=== PATIENT | female | born 1995 | race Caucasian/White ===

== ENCOUNTER 2016-09-04 13:13 | Outpatient (CLI) | payer OTHER | END 2016-09-04 13:14 | disposition home or self-care (01) | DX: F41.1 Generalized anxiety disorder (principal); R53.83 Other fatigue ==

== ENCOUNTER 2017-03-23 14:19 | Emergency (ER) | payer OTHER ==
[2017-03-23 15:07] LABS: BASOPHILS # (AUTO) 0.1 10^3/uL (0.0-0.1); BASOPHILS % (AUTO) 0.8 %; EOSINOPHILS # (AUTO) 0.1 10^3/uL (0.0-0.7); EOSINOPHILS % (AUTO) 0.9 %; HCT - HEMATOCRIT 43.8 % (37.0-47.0); HGB - HEMOGLOBIN 14.8 g/dL (12.0-16.0); LYMPHOCYTES # (AUTO) 1.8 10^3/uL (1.5-3.5); LYMPHOCYTES % (AUTO) 17.1 %; MEAN CORPUSCULAR HEMOGLOBIN 28.9 pg (27.0-31.0); MEAN CORPUSCULAR HGB CONC 33.7 g/dL (32.0-36.0); MEAN CORPUSCULAR VOLUME 85.6 fL (81.0-99.0); MEAN PLATELET VOLUME 8.2 fL (7.9-10.8); MONOCYTES # (AUTO) 0.5 10^3/uL (0.0-1.0); MONOCYTES % (AUTO) 4.7 %; NEUTROPHILS # (AUTO) 8.1 10^3/uL (1.5-6.6); NEUTROPHILS % (AUTO) 76.5 %; RED BLOOD COUNT 5.12 10^6/uL (4.20-5.40); RED CELL DISTRIBUTION WIDTH 13.8 % (12.0-15.0); UNCORRECTED WHITE BLOOD COUNT 10.6 x10^3/uL; WHITE BLOOD COUNT 10.6 x10^3/uL (4.8-10.8)
[2017-03-23 15:18] LABS: ALBUMIN/GLOBULIN RATIO 1.3 (1.0-2.2); BILIRUBIN,TOTAL 0.3 mg/dL (0.2-1.0); BUN - BLOOD UREA NITROGEN 13 mg/dL (6-20); CALCIUM 9.2 mg/dL (8.5-10.3); CARBON DIOXIDE - CO2 20 mmol/L (21-32); CHLORIDE 111 mmol/L (101-111); CREATININE 0.9 mg/dL (0.4-1.0); GFR - MDRD 79 (>89); GLUCOSE 115 mg/dL (70-100); LIPASE 30 U/L (22-51); POTASSIUM 3.8 mmol/L (3.5-5.0); SALICYLATE < 6.0 mg/dL; SODIUM 138 mmol/L (135-145); TOTAL PROTEIN 7.6 g/dL (6.7-8.2)
[2017-03-23 15:19] LABS: ACETAMINOPHEN < 10 ug/mL (10-30)
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
[2017-03-23 16:05] LABS: BILIRUBIN,URINE NEGATIVE (NEGATIVE)
[2017-03-23 16:07] LABS: UA CHARGE (STRIP ONLY) YES; UR CULTURE IF IND NOT INDICATED
[2017-03-23 16:08] LABS: HCG UR QUAL NEGATIVE
[2017-03-23 16:13] LABS: PLATELET MORPHOLOGY 1+ LARGE PLATELETS (NORMAL)
[2017-03-23 16:14] LABS: NP AUTO DIFFERENTIAL? NO; NP MAN DIFFERENTIAL? YES; PLATELET ESTIMATE, MANUAL NORMAL (130-450,000) (NORMAL)
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
--- NOTE | 2017-03-24 01:27 | ED Physician Documentation ---
ED Addendum - Addendum Addendum: 03/24/17 01:25 Patient was signed over to me from dr lara pending tele psych consult. the initial telepsych consult recommended inpatient care. Patient and mother became upset and stated that they wanted to go home and wanted to talk to another psychiatrist together. A second consult was placed and a discussion was had with the patient and family. It was decided that it was ok for the patient to go home as long as the patient had 24 hour surveillance. Patient and mother agreed with the plan and were stable for discharge with outpatient follow up.
[2017-03-24 01:40] VITALS: BP 117/77
== END 2017-03-24 01:41 | disposition home or self-care (01) ==
LOC: ED 14:19
DX: T43.592A Poisoning by other antipsychotics and neuroleptics, intentional self-harm, initial encounter (principal); R11.10 Vomiting, unspecified; R00.0 Tachycardia, unspecified
CPT/HCPCS: 36415; 80053; 80306; 80307; 80320; 80329; 81003; 81025; 83690; 85025; 93005; 99284; G0426; Q3014; 81001; 87086

== ENCOUNTER 2019-02-07 11:45 | Emergency (ER) | payer OTHER ==
--- NOTE | 2019-02-07 12:34 | ED Physician Documentation ---
PD HPI MHE - Stated complaint Stated Complaint: SI - Chief complaint Chief Complaint: MHE - History obtained from History obtained from: Patient, Family - History of Present Illness Primary symptom: Suicidal ideation, Self harm - cut, Depression, Anxiety, Other (binging and purging on food) Timing - onset: How many days ago (2) Severity Comments: moderate severity Contributing factors: Work (hearing coworkers talk about her) Similar symptoms before: Diagnosis (anxiety and depression) Recently seen: Not recently seen - Additional information Additional information: denies pain. Denies ingestion. Denies alcohol or substance abuse. Reports she considered overdosing on old medications she has at home to kill herself. She has a prior hx of overdose Review of Systems Ten Systems: 10 systems reviewed and negative Constitutional: denies: Fever Cardiac: denies: Chest pain / pressure Respiratory: denies: Dyspnea GI: denies: Abdominal Pain Neurologic: denies: Generalized weakness, Altered mental status Psychiatric: reports: Depressed, Suicidal, Anxiety. denies: Hallucinations, Delusions PD PAST MEDICAL HISTORY - Past Medical History Past Medical History: Yes Psych: Depression, Anxiety - Past Surgical History Past Surgical History: Yes General: Appendectomy - Present Medications Home Medications: Ambulatory Orders Medication Instructions Recorded Confirmed hydrOXYzine HCl [Hydroxyzine HCl] 50 mg PO Q6HR PRN #30 tablet 02/07/19 - Allergies Allergies/Adverse Reactions: Allergies Allergy/AdvReac Type Severity Reaction Status Date / Time lorazepam [From Ativan] Allergy Anxiety Verified 02/07/19 12:03 aripiprazole [From Abilify] AdvReac Anxiety Verified 03/23/17 14:35 - Social History Does the pt smoke?: No Smoking Status: Never smoker Does the pt drink ETOH?: No Does the pt have substance abuse?: No - Immunizations Immunizations are current?: Yes PD ED PE NORMAL - Vitals Vital signs reviewed: Yes - General General: Alert and oriented X 3, No acute distress, Well developed/nourished - HEENT HEENT: Atraumatic - Neck Neck: Supple, no meningeal sign - Cardiac Cardiac: RRR, No murmur, No gallop, No rub - Respiratory Respiratory: No respiratory distress, Clear bilaterally - Abdomen Abdomen: Soft, Non tender, Non distended - Female Female : Deferred - Rectal Rectal: Deferred - Derm Derm: Normal color, Warm and dry, No rash, Other (multiple superficial old cuts to left proximal forearm on volar aspect) - Extremities Extremities: No deformity - Neuro Neuro: Alert and oriented X 3 Eye Opening: Spontaneous Motor: Obeys Commands Verbal: Oriented GCS Score: 15 - Psych Psych: Normal affect, Other (depressed mood ) Results - Vitals Vitals: Vital Signs - 24 hr 02/07/19 02/07/19 15:01 17:08 Heart Rate 79 89 Respiratory 18 16 Rate Blood Pressure 126/100 H 131/93 H O2 Saturation 100 98 Oxygen O2 Source Room air - Labs Labs: Microbiology 02/07/19 12:45 Urine Culture - Final Urine,Clean Catch 50-100,000 COLONIES/ML Polymicrobial growth including potential pathogens. This is suggestive of skin or other contamination. Laboratory Tests 02/07/19 02/07/19 02/07/19 12:38 12:38 12:45 WBC 7.6 RBC 5.01 Hgb 14.5 Hct 43.6 MCV 87.0 MCH 28.9 MCHC 33.3 RDW 13.7 Plt Count 303 MPV 8.1 Neut # (Auto) 5.0 Lymph # (Auto) 1.9 [place] # (Auto) 0.6 Eos # (Auto) 0.1 Baso # (Auto) 0.0 Absolute Nucleated RBC 0.00 Nucleated RBC % 0.0 Sodium 138 Potassium 3.8 Chloride 102 Carbon Dioxide 24 Anion Gap 12.0 BUN 11 Creatinine 0.6 Estimated GFR (MDRD) 124 Glucose 102 H Calcium 9.5 Total Bilirubin 0.6 AST 24 ALT 27 Alkaline Phosphatase 68 Total Protein 7.6 Albumin 4.3 Globulin 3.3 Albumin/Globulin Ratio 1.3 Lipase 29 Urine Color Urine Clarity Urine pH Ur Specific [place] Urine Protein Urine Glucose (UA) Urine Ketones Urine Occult Blood Urine Nitrite Urine Bilirubin Urine Urobilinogen Ur Leukocyte Esterase Urine RBC Urine WBC Ur Squamous Epith Cells Urine Bacteria Ur Microscopic Review Urine Culture Comments Urine HCG, Qual Urine Opiates Screen NEGATIVE Ur Oxycodone Screen NEGATIVE Urine Methadone Screen NEGATIVE Ur Propoxyphene Screen NEGATIVE Ur Barbiturates Screen NEGATIVE Ur Tricyclics Screen NEGATIVE Ur Phencyclidine Scrn NEGATIVE Ur Amphetamine Screen NEGATIVE U Methamphetamines Scrn NEGATIVE U Benzodiazepines Scrn NEGATIVE Urine Cocaine Screen NEGATIVE U Cannabinoids Screen NEGATIVE Ethyl Alcohol < 5.0 02/07/19 12:45 WBC RBC Hgb Hct MCV MCH MCHC RDW Plt Count MPV Neut # (Auto) Lymph # (Auto) [place] # (Auto) Eos # (Auto) Baso # (Auto) Absolute Nucleated RBC Nucleated RBC % Sodium Potassium Chloride Carbon Dioxide Anion Gap BUN Creatinine Estimated GFR (MDRD) Glucose Calcium Total Bilirubin AST ALT Alkaline Phosphatase Total Protein Albumin Globulin Albumin/Globulin Ratio Lipase Urine Color YELLOW Urine Clarity CLEAR Urine pH 7.5 Ur Specific [place] 1.015 Urine Protein NEGATIVE Urine Glucose (UA) NEGATIVE Urine Ketones TRACE Urine Occult Blood NEGATIVE Urine Nitrite NEGATIVE Urine Bilirubin NEGATIVE Urine Urobilinogen 0.2 (NORMAL) Ur Leukocyte Esterase TRACE H Urine RBC 0-5 Urine WBC 0-3 Ur Squamous Epith Cells FEW Squamous Urine Bacteria Few Ur Microscopic Review INDICATED Urine Culture Comments INDICATED Urine HCG, Qual NEGATIVE Urine Opiates Screen Ur Oxycodone Screen Urine Methadone Screen Ur Propoxyphene Screen Ur Barbiturates Screen Ur Tricyclics Screen Ur Phencyclidine Scrn Ur Amphetamine Screen U Methamphetamines Scrn U Benzodiazepines Scrn Urine Cocaine Screen U Cannabinoids Screen Ethyl Alcohol normal labs except mild hyperglycemia PD MEDICAL DECISION MAKING - ED course Complexity details: considered differential, d/w patient, d/w family ED course: 23 y/o F with hx of anxiety, depression, disordered eating with feelings of SI. Has previous attempted overdose with meds at home. Has access to old meds at home - hydroxyzine and others that she can't recall. Has been off meds for some time because her PCP does not feel comfortable starting to meds and [place]. [place] has superficial cuts on the forearm which are healed and require no intervention or repair. No drug or alcohol abuse. Pt is medically stable. Will obtain labs per E request for clearance. She is stable, awaiting E eval. E evaluated and found pt reasonable, not acutely suicidal and stable for safety contract with outpt f/u. The MHE assisted in arranging f/u for the patient. Departure - Departure Disposition: 01 Home, Self Care Clinical Impression: Anxiety Condition: Stable Record reviewed to determine appropriate education?: Yes Follow-Up: Serenity Mcmahan MD [Primary Care Provider] - Prescriptions: hydrOXYzine HCl [Hydroxyzine HCl] 50 mg PO Q6HR PRN #30 tablet PRN Reason: Anxiety Discharge Date/Time: 02/07/19 17:09
[2019-02-07 12:45] LABS: BASOPHILS % (AUTO) 0.6 %; EOSINOPHILS # (AUTO) 0.1 10^3/uL (0.0-0.7); EOSINOPHILS % (AUTO) 1.1 %; HGB - HEMOGLOBIN 14.5 g/dL (12.0-16.0); LYMPHOCYTES # (AUTO) 1.9 10^3/uL (1.5-3.5); LYMPHOCYTES % (AUTO) 25.2 %; MEAN CORPUSCULAR HEMOGLOBIN 28.9 pg (27.0-31.0); MEAN CORPUSCULAR HGB CONC 33.3 g/dL (32.0-36.0); MEAN PLATELET VOLUME 8.1 fL (7.9-10.8); MONOCYTES # (AUTO) 0.6 10^3/uL (0.0-1.0); MONOCYTES % (AUTO) 7.7 %; NEUTROPHILS % (AUTO) 65.4 %; PLT - PLATELET COUNT 303 10^3/uL (130-450); RED BLOOD COUNT 5.01 10^6/uL (4.20-5.40); RED CELL DISTRIBUTION WIDTH 13.7 % (12.0-15.0); WHITE BLOOD COUNT 7.6 x10^3/uL (4.8-10.8)
[2019-02-07 12:51] LABS: MUDS CUTOFF CONCENTRATIONS CUTOFF CONC BELOW:
[2019-02-07 12:56] LABS: BILIRUBIN,URINE NEGATIVE (NEGATIVE); GLUCOSE, URINE (UA) NEGATIVE (NEGATIVE); KETONES,URINE (UA) TRACE mg/dL (NEGATIVE); LEUKOCYTE ESTERASE, URINE TRACE (NEGATIVE); NITRITE,URINE NEGATIVE (NEGATIVE); OCCULT BLOOD,URINE NEGATIVE (NEGATIVE); PH,URINE 7.5 PH (5.0-7.5); PROTEIN,URINE NEGATIVE (NEGATIVE); UROBILINOGEN,URINE 0.2 (NORMAL) E.U./dL (NORMAL)
[2019-02-07 12:58] LABS: CLARITY,URINE CLEAR (CLEAR); HCG UR QUAL NEGATIVE
[2019-02-07 12:59] LABS: ALBUMIN 4.3 g/dL (3.2-5.5); ALBUMIN/GLOBULIN RATIO 1.3 (1.0-2.2); ALKALINE PHOSPHATASE 68 IU/L (42-121); ALT ALANINE AMINOTRANSFERASE 27 IU/L (10-60); AST ASPARTATE AMINOTRANSFERASE 24 IU/L (10-42); BILIRUBIN,TOTAL 0.6 mg/dL (0.2-1.0); BUN - BLOOD UREA NITROGEN 11 mg/dL (6-20); CALCIUM 9.5 mg/dL (8.5-10.3); CARBON DIOXIDE - CO2 24 mmol/L (21-32); CHLORIDE 102 mmol/L (101-111); CREATININE 0.6 mg/dL (0.4-1.0); GFR - MDRD 124 (>89); GLUCOSE 102 mg/dL (70-100); LIPASE 29 U/L (22-51); SODIUM 138 mmol/L (135-145); TOTAL PROTEIN 7.6 g/dL (6.7-8.2)
[2019-02-07 13:06] LABS: AMPHETAMINE SCREEN,URINE NEGATIVE (NEGATIVE); BENZODIAZEPINES SCREEN, URINE NEGATIVE (NEGATIVE); COCAINE SCREEN URINE NEGATIVE (NEGATIVE); METHADONE SCREEN, URINE NEGATIVE (NEGATIVE); METHAMPHETAMINES SCREEN, URINE NEGATIVE (NEGATIVE); OPIATE SCREEN, URINE NEGATIVE (NEGATIVE); OXYCODONE SCREEN, URINE NEGATIVE (NEGATIVE); PROPOXYPHENE SCREEN, URINE NEGATIVE (NEGATIVE); TRICYCLIC ANTIDEPRESSANT,URINE NEGATIVE (NEGATIVE)
[2019-02-07 13:14] LABS: BACTERIA,URINE Few /HPF (None Seen); RBC,URINE 0-5 /HPF (0-5); SQUAMOUS EPITHELIAL CELL,UR FEW Squamous (<= Few)
[2019-02-07 17:09] VITALS: BP 131/93
== END 2019-02-07 17:09 | disposition home or self-care (01) ==
LOC: ED 11:45
DX: F41.9 Anxiety disorder, unspecified (principal); F32.9 Major depressive disorder, single episode, unspecified; R45.851 Suicidal ideations
CPT/HCPCS: 36415; 80053; 80306; 80320; 81001; 81003; 81025; 83690; 85025; 87086; 99283

== ENCOUNTER 2019-02-14 17:28 | Outpatient (CLI) | payer OTHER | END 2019-02-14 23:59 | disposition home or self-care (01) | LOC: LAB.R 17:28 | PROVIDERS: ATTEND Family Medicine | DX: N39.0 Urinary tract infection, site not specified (principal) | CPT/HCPCS: 87086 ==

== ENCOUNTER 2019-02-14 17:47 | Outpatient (CLI) | payer OTHER | END 2019-02-14 17:48 | disposition home or self-care (01) | LOC: LAB 17:47 | PROVIDERS: ATTEND Family Medicine | DX: R11.2 Nausea with vomiting, unspecified (principal); R06.2 Wheezing; R05 Cough | CPT/HCPCS: 85379 ==

== ENCOUNTER 2019-02-14 19:22 | Emergency (ER) | payer OTHER ==
[2019-02-14] MEDS ORDERED: CHERRY SYRUP 10 ML UDC PO ONE (20:17)
[2019-02-14] MEDS ORDERED: DEXAMETHASONE 10 MG/ML VIAL PO STA (20:17)
[2019-02-14] MEDS ORDERED: IPRATROPIUM/ALBUTEROL 3 ML NEB INH STA (20:17)
[2019-02-14] MEDS ORDERED: IOVERSOL 320 100 ML VIAL IVP ONE ×2 (20:30→20:53)
--- NOTE | 2019-02-14 20:59 | ED Physician Documentation ---
PD HPI DYSPNEA - Stated complaint Stated Complaint: HIGH D DIMER - Chief complaint Chief Complaint: Resp - History obtained from History obtained from: Patient, Family - History of Present Illness Timing - onset: How many weeks ago (2) Timing - onset during: Light activity Timing - duration: Weeks (2) Timing - details: Gradual onset, Still present Inciting event(s): URI Improved by: Inhaler/neb, Rest Worsened by: Exertion, Coughing Associated symptoms: Cough, Chest pain / discomfort Similar symptoms before: Has not had sx before Recently seen: Clinic - Additional information Additional information: 23-year-old female has been sick with a cough and congestion for the past 2 weeks today she is developed some difficulty breathing and is having a difficult time getting a full deep breath. She was evaluated in the clinic and has been sent to the emergency department after her d-dimer was elevated. Review of Systems Constitutional: denies: Fever Eyes: denies: Decreased vision Ears: denies: Ear pain Nose: reports: Rhinorrhea / runny nose, Congestion Throat: reports: Sore throat Cardiac: reports: Chest pain / pressure. 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 : None HEENT: None Psych: Depression, Anxiety Musculoskeletal: None Derm: None - Past Surgical History Past Surgical History: Yes General: Appendectomy - Present Medications Home Medications: Ambulatory Orders Medication Instructions Recorded Confirmed hydrOXYzine HCl [Hydroxyzine HCl] 50 mg PO Q6HR PRN #30 tablet 02/07/19 02/14/19 Azithromycin [Zithromax] 250 mg PO DAILY #4 tablet 02/14/19 - Allergies Allergies/Adverse Reactions: Allergies Allergy/AdvReac Type Severity Reaction Status Date / Time lorazepam [From Ativan] Allergy Anxiety Verified 02/14/19 19:34 aripiprazole [From Abilify] AdvReac Anxiety Verified 02/14/19 19:34 - Social History Does the pt smoke?: No Smoking Status: Never smoker Does the pt drink ETOH?: No Does the pt have substance abuse?: No - Immunizations Immunizations are current?: Yes - POLST Patient has POLST: No PD ED PE NORMAL - Vitals Vital signs reviewed: Yes (normal ) - General General: Alert and oriented X 3, No acute distress, Well developed/nourished - HEENT HEENT: Atraumatic, PERRL, EOMI, Pharynx benign, Dentition benign, Other (the left TM is inflamed with retained landmarks the right is clear. 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 Negative for acute pulmonary embolus and. Groundglass densities in the right lower lobe suspicious for viral or atypical pneumonia versus pneumonitis, less likely pulmonary hemorrhage.), EMP read indepedently, See rad report PD MEDICAL DECISION MAKING - ED course Complexity details: reviewed old records, reviewed results, re-evaluated patient, considered differential, d/w patient, d/w family ED course: 23-year-old female with a cough and congestion with some shortness of breath today has otitis on exam diminished breath sounds in the right lower lobe and on CT angios of the chest the appearance of a groundglass infiltrate consistent with atypical pneumonia or viral pneumonia. The patient is administered dexamethasone and a DuoNeb treatment with some improvement. She has a prescription for prednisone and an antibiotic awaiting her. We will provide her initial dose of Rocephin and azithromycin here tonight. She had some improvement with the duoneb but not enough to consider an inhaler as she will likely improve with the steroid this evening. The patient was uncertain of the antibiotic prescribed and I will include a script for nirmal to cover atypicals. Departure - Departure Disposition: 01 Home, Self Care Clinical Impression: Primary atypical pneumonia Otitis media Qualifiers: Otitis media type: suppurative Chronicity: acute Laterality: left Recurrence: non-recurrent Spontaneous tympanic membrane rupture: without spontaneous rupture Qualified Code(s): H66.002 - Acute suppurative otitis media without spontaneous rupture of ear drum, left ear Condition: Stable Instructions: ED Otitis Media Acute Adult, ED Pneumonia Adult Follow-Up: Serenity Mcmahan MD [Primary Care Provider] - Prescriptions: Azithromycin [Zithromax] 250 mg PO DAILY #4 tablet Comments: Tonight it appears you have atypical pneumonia or "walking pneumonia ". Take the azithromycin as prescribed daily for the next 4 days and the prednisone prescribed by Dr. Bustamante.
--- NOTE | 2019-02-14 21:10 | CT Report ---
Reason: elevated D-dimer SOA Procedure Date: 02/14/2019 Accession Number: [id number] / [id number] Procedure: CT - ANGIO CHEST W/WO CPT Code: FULL RESULT: EXAM: CT ANGIOGRAM CHEST EXAM DATE: 02/14/2019 08:51 PM. CLINICAL HISTORY: Elevated D-dimer SOA. COMPARISON: None. TECHNIQUE: Routine helical imaging was performed through the chest in the pulmonary arterial phase. IV Contrast: 80 cc Optiray 320 IV. Reconstructions: Coronal 3-D MIP reconstructions.Sagittal and coronal. In accordance with CT protocol optimization, one or more of the following dose reduction techniques were utilized for this exam: automated exposure control, adjustment of mA and/or KV based on patient size, or use of iterative reconstructive technique. FINDINGS: Pulmonary Arteries: Diagnostic quality: Adequate through the segmental arteries. Negative for acute pulmonary embolism. Main pulmonary artery size is normal. Lungs/Pleura: There is groundglass opacity within the right lower lobe with small clustered centrilobular nodules in the medial and posterior basal right lower lobe. No consolidation. No central endobronchial obstructing lesion. Negative for pleural effusion. Mediastinum: Heart size is normal. No pericardial effusion. No mediastinal or hilar lymphadenopathy. Thoracic Aorta: No thoracic aortic aneurysm. The aortic arch is not yet opacified with contrast. Upper Abdomen: Unremarkable. Other: None. IMPRESSION: 1. Negative for acute pulmonary embolism. 2. Groundglass densities in the right lower lobe suspicious for viral or atypical pneumonia versus pneumonitis, less likely pulmonary hemorrhage. [facility]
[2019-02-14] MEDS ORDERED: cefTRIAXone 1 GM in SODIUM CHLORIDE 0.9% MINIBAG 100 ML IV STA (21:21)
[2019-02-14] MEDS ORDERED: AZITHROMYCIN 250 MG TABLET PO STA (21:22)
[2019-02-14 21:42] VITALS: BP 104/88
== END 2019-02-14 22:19 | disposition home or self-care (01) ==
LOC: ED 19:22
DX: J18.9 Pneumonia, unspecified organism (principal); H66.002 Acute suppurative otitis media without spontaneous rupture of ear drum, left ear; F41.9 Anxiety disorder, unspecified; F32.9 Major depressive disorder, single episode, unspecified; R11.2 Nausea with vomiting, unspecified; R06.2 Wheezing; R05 Cough; N39.0 Urinary tract infection, site not specified
CPT/HCPCS: 71275; 85379; 87086; 94640; 96365; 99283; 99284; A9270; Q9967

== ENCOUNTER 2019-08-05 14:06 | Outpatient (CLI) | payer OTHER ==
--- NOTE | 2019-08-06 01:50 | Ultrasound Report ---
Reason: RUQ PAIN Procedure Date: 08/05/2019 Accession Number: [id number] / [id number] Procedure: US - Abdomen Limited CPT Code: Final Report FULL RESULT: EXAM: ABDOMEN ULTRASOUND LIMITED, RUQ EXAM DATE: 08/05/2019 03:20 PM. CLINICAL HISTORY: RUQ PAIN. COMPARISON: None. TECHNIQUE: Real-time scanning was performed with static images obtained. FINDINGS: Liver: Diffusely echogenic and heterogeneous. Heating 0.5 cm. Main portal vein flow: Hepatopetal. Gallbladder: No stones, wall thickening, or sonographic Boateng's sign. Biliary System: CBD measures 2 mm. No intrahepatic ductal dilatation. Other: Right kidney demonstrates no hydronephrosis. Pancreas largely obscured by overlying bowel gas. IMPRESSION: Diffuse hepatic steatosis. RADIA
== END 2019-08-05 14:07 | disposition home or self-care (01) ==
LOC: DI 14:06
PROVIDERS: ATTEND Physician Assistant
DX: K76.0 Fatty (change of) liver, not elsewhere classified (principal); R10.11 Right upper quadrant pain
CPT/HCPCS: 76705

== ENCOUNTER 2020-02-14 13:52 | Outpatient (CLI) | payer OTHER ==
[2020-02-14 18:45] LABS: BASOPHILS % (AUTO) 0.1 %; EOSINOPHILS % (AUTO) 0.1 %; HGB - HEMOGLOBIN 14.6 g/dL (12.0-16.0); LYMPHOCYTES # (AUTO) 2.7 10^3/uL (1.5-3.5); MEAN CORPUSCULAR HEMOGLOBIN 29.4 pg (27.0-31.0); MEAN CORPUSCULAR HGB CONC 32.9 g/dL (32.0-36.0); MEAN CORPUSCULAR VOLUME 89.5 fL (81.0-99.0); MONOCYTES # (AUTO) 0.4 10^3/uL (0.0-1.0); MONOCYTES % (AUTO) 5.7 %; NEUTROPHILS # (AUTO) 3.9 10^3/uL (1.5-6.6); NEUTROPHILS % (AUTO) 55.7 %; PLT - PLATELET COUNT 330 10^3/uL (130-450); RED BLOOD COUNT 4.96 10^6/uL (4.20-5.40); RED CELL DISTRIBUTION WIDTH 13.3 % (12.0-15.0)
[2020-02-14 19:06] LABS: ALBUMIN 4.3 g/dL (3.2-5.5); ALBUMIN/GLOBULIN RATIO 1.5 (1.0-2.2); ALKALINE PHOSPHATASE 70 IU/L (42-121); ALT ALANINE AMINOTRANSFERASE 23 IU/L (10-60); AST ASPARTATE AMINOTRANSFERASE 20 IU/L (10-42); BILIRUBIN,TOTAL 0.6 mg/dL (0.2-1.0); BUN - BLOOD UREA NITROGEN 12 mg/dL (6-20); CALCIUM 9.1 mg/dL (8.5-10.3); CARBON DIOXIDE - CO2 24 mmol/L (21-32); CHLORIDE 105 mmol/L (101-111); CREATININE 0.7 mg/dL (0.4-1.0); GLUCOSE 115 mg/dL (70-100); SODIUM 137 mmol/L (135-145); TOTAL PROTEIN 7.2 g/dL (6.7-8.2)
[2020-02-14 19:09] LABS: CRP - C-REACTIVE PROTEIN < 1.0 mg/dL (0-1.0)
[2020-02-14 19:36] LABS: RHEUMATOID FACTOR NEGATIVE (Negative)
[2020-02-16 14:15] LABS: ANA SCREEN NEGATIVE (NEGATIVE)
== END 2020-02-14 13:53 | disposition home or self-care (01) ==
LOC: LAB.WCP 13:52
PROVIDERS: ATTEND Physician Assistant
DX: R53.83 Other fatigue (principal)
CPT/HCPCS: 36415; 80053; 85025; 85651; 86038; 86140; 86430

== ENCOUNTER 2021-03-27 09:45 | Outpatient (CLI) | payer OTHER | END 2021-03-27 23:59 | disposition home or self-care (01) | LOC: LAB.N 09:45 | PROVIDERS: ATTEND Family Medicine | DX: R07.0 Pain in throat (principal) | CPT/HCPCS: 87070 ==

== ENCOUNTER 2021-04-11 08:00 | Outpatient (CLI) | payer OTHER | END 2021-04-11 23:59 | disposition home or self-care (01) | LOC: LAB.N 08:00 | PROVIDERS: ATTEND Nurse Practitioner | DX: R07.0 Pain in throat (principal); Z20.822 Contact with and (suspected) exposure to COVID-19 | CPT/HCPCS: 87070 ==

== ENCOUNTER 2021-06-17 14:24 | Outpatient (CLI) | payer BC, OTHER | END 2021-06-17 14:25 | disposition home or self-care (01) | LOC: NS 14:24 | PROVIDERS: ATTEND Family Medicine | DX: Z71.3 Dietary counseling and surveillance (principal); E66.9 Obesity, unspecified; Z68.42 Body mass index [BMI] 45.0-49.9, adult | CPT/HCPCS: 97802 ==